=== PATIENT | female | born 1955 | race Caucasian/White ===

== ENCOUNTER 2021-05-22 13:20 | Inpatient (IN) | payer MEDICARE, OTHER ==
[~2021-05-22] VITALS: Ht 154.9 cm; Wt 91.0 kg
[2021-05-22 12:19] VITALS: BP 162/85
[2021-05-22 13:18] VITALS: BP 145/85
[2021-05-22 13:35] VITALS: BP 163/86
[2021-05-22 13:50] VITALS: BP 145/85
[2021-05-22 14:05] VITALS: BP 144/86
[2021-05-22] MEDS ORDERED: NITROGLYCERIN 0.4 MG SL TAB SL PRN (16:00)
[2021-05-22] MEDS ORDERED: DOCUSATE SOD 100 MG CAP PO PRN (16:00)
[2021-05-22] MEDS ORDERED: ACETAMINOPHEN 325 MG TAB PO PRN (16:00)
[2021-05-22] MEDS ORDERED: REMDESIVIR PER PHARMACY 0 ML IV SCH (16:00)
[2021-05-22] MEDS ORDERED: ACETAMINOPHEN 500 MG TAB PO PRN (16:00)
[2021-05-22] MEDS ORDERED: ONDANSETRON HCL 4 MG/2 ML VIAL IV PRN (16:00)
[2021-05-22] MEDS ORDERED: LORazepam 0.5 MG TAB PO PRN (16:00)
[2021-05-22] MEDS ORDERED: HYDROcodone-ACET 5/325MG TAB PO PRN (16:00)
[2021-05-22] MEDS ORDERED: HYDROmorphone HCL 2 MG/ML VL IV PRN (16:00)
[2021-05-22] MEDS ORDERED: MORPHINE SULFATE INJECTION 2 MG/ML SYRG IV PRN (16:00)
[2021-05-22 16:34] LABS: Basophils # (auto) 0 10 ^3/uL (0-0.2); Basophils % (auto) 0.2 % (0.0-2.0); Eosinophils # (auto) 0 10 ^3/uL (0-0.8); Hematocrit 40.9 % (36.0-46.0); Hemoglobin 13.8 g/dL (12.2-16.2); Lymphocytes # (auto) 0.3 10 ^3/uL (0.4-5.4); Lymphocytes % (auto) 8.7 % (10.0-50.0); Mean Corpuscular Hgb Conc. 33.6 g/dL (32.0-36.0); Monocytes # (auto) 0.2 10 ^3/uL (0-1.3); Neutrophils # (auto) 3.2 10 ^3/uL (1.6-8.6); Neutrophils % (auto) 86.1 % (37.0-80.0); Nucleated Red Blood Cells % 0.1 %; Red Blood Cells 4.17 10^6/uL (4.0-5.20); Red Cell Distribution Width 13.1 % (11.8-14.3); White Blood Cell 3.7 10^3/uL (4.4-10.8)
[2021-05-22 16:50] LABS: Potassium 4.4 mmol/L (3.5-5.1)
[2021-05-22 16:54] LABS: BUN/Creatinine Ratio 24.5; Bilirubin, Total 0.3 mg/dL (0.2-1.0)
[2021-05-22 16:57] LABS: Magnesium 1.9 mg/dL (1.6-2.6)
[2021-05-22 17:05] LABS: CRP High Sensitivity 7.14 mg/dL (< 0.3)
[2021-05-22 17:12] LABS: Thyroid Stimulating Hormone 0.23 uIU/mL (0.358-3.74)
[2021-05-22 17:22] LABS: INR 1.01 (0.9-1.15); Partial Thromboplastin Time 28.9 sec (23.6-33.0)
[2021-05-22] MEDS ORDERED: REMDESIVIR 200 MG in NS 210ml LOADING DOSE ADULT IV ONE (19:00)
[2021-05-22] MEDS: BUDESONIDE (INHALATION) 180 MCG IH IN SCH (22:00)
[2021-05-22] MEDS: SODIUM CHLOR 0.9% PF (SALINE LOCK) 10ML VIAL/SYR IV SCH (23:13)
[2021-05-23] MEDS: ENOXAPARIN SOD 40 MG/0.4 ML SYRINGE SC SCH ×3 (00:33→22:04)
[2021-05-23 00:53] VITALS: BP 149/77
[2021-05-23 05:00] VITALS: BP 114/60
[2021-05-23] MEDS: SODIUM CHLOR 0.9% PF (SALINE LOCK) 10ML VIAL/SYR IV SCH ×3 (05:43→22:03)
[2021-05-23 06:24] LABS: Basophils # (auto) 0 10 ^3/uL (0-0.2); Basophils % (auto) 0.2 % (0.0-2.0); Eosinophils # (auto) 0 10 ^3/uL (0-0.8); Hematocrit 41.5 % (36.0-46.0); Hemoglobin 14.3 g/dL (12.2-16.2); Lymphocytes # (auto) 0.9 10 ^3/uL (0.4-5.4); Mean Corpuscular Hemoglobin 33.4 pg (28.0-32.0); Mean Corpuscular Hgb Conc. 34.5 g/dL (32.0-36.0); Mean Corpuscular Volume 96.7 fL (80.0-100.0); Monocytes # (auto) 0.3 10 ^3/uL (0-1.3); Monocytes % (auto) 6.1 % (0.0-12.0); Neutrophils # (auto) 4.3 10 ^3/uL (1.6-8.6); Neutrophils % (auto) 77.7 % (37.0-80.0); Nucleated Red Blood Cells % 0.2 %; Red Cell Distribution Width 13.3 % (11.8-14.3); White Blood Cell 5.6 10^3/uL (4.4-10.8)
[2021-05-23 06:52] LABS: Potassium 4.3 mmol/L (3.5-5.1)
[2021-05-23 07:03] LABS: BUN/Creatinine Ratio 30.3; Bilirubin, Total 0.4 mg/dL (0.2-1.0); Calcium 8.5 mg/dL (8.5-10.1); Total Protein 6.5 g/dL (6.4-8.2)
[2021-05-23 09:00] VITALS: BP 114/60
[2021-05-23] MEDS: BUDESONIDE (INHALATION) 180 MCG IH IN SCH ×2 (10:00→21:26)
[2021-05-23] MEDS: AZITHROMYCIN 500MG/ 250ML 250 ML IV SCH (10:14)
[2021-05-23] MEDS: DexAMETHasone SOD PHOS 10MG/1ML VIAL INJ IV SCH (10:14)
[2021-05-23] MEDS: ASCORBIC ACID 1,000 MG TAB PO SCH (10:14)
[2021-05-23] MEDS: ZINC SULFATE 220mg CAP or TAB PO SCH (10:14)
[2021-05-23] MEDS: CHOLECALCIFEROL (VITD3) 2,000 UNIT CAP/TAB PO SCH (10:15)
[2021-05-23 13:00] VITALS: BP 119/59
[2021-05-23] MEDS: REMDESIVIR 100mg 100 MG in SODIUM CHL 0.9% 230 ML IV SCH (14:30)
[2021-05-23] MEDS ORDERED: OSELTAMIVIR 75 MG CAP PO ONE (14:45)
[2021-05-23] MEDS ORDERED: cefTRIAXone 1GM/50ML D5W 50 ML IV ONE (14:45)
[2021-05-23 16:45] VITALS: BP 115/60
[2021-05-23 21:34] VITALS: BP 130/75
[2021-05-23] MEDS: OSELTAMIVIR 75 MG CAP PO SCH (22:04)
[2021-05-24 05:00] VITALS: BP 140/78
[2021-05-24] MEDS: SODIUM CHLOR 0.9% PF (SALINE LOCK) 10ML VIAL/SYR IV SCH ×3 (05:34→21:49)
[2021-05-24] MEDS: BUDESONIDE (INHALATION) 180 MCG IH IN SCH ×2 (06:31→22:38)
[2021-05-24] MEDS: ALBUTEROL SULF HFA 90MCG INH 200DOSE IN PRN (06:31)
[2021-05-24 09:00] VITALS: BP 115/53
[2021-05-24] MEDS: cefTRIAXone 1GM/50ML D5W 50 ML IV SCH (09:08)
[2021-05-24] MEDS: DexAMETHasone SOD PHOS 10MG/1ML VIAL INJ IV SCH (09:08)
[2021-05-24] MEDS: OSELTAMIVIR 75 MG CAP PO SCH ×2 (09:08→21:48)
[2021-05-24] MEDS: ZINC SULFATE 220mg CAP or TAB PO SCH (09:08)
[2021-05-24] MEDS: CHOLECALCIFEROL (VITD3) 2,000 UNIT CAP/TAB PO SCH (09:09)
[2021-05-24] MEDS: ASCORBIC ACID 1,000 MG TAB PO SCH (09:09)
[2021-05-24] MEDS: ENOXAPARIN SOD 40 MG/0.4 ML SYRINGE SC SCH ×2 (09:09→21:49)
[2021-05-24] MEDS ORDERED: FUROSEMIDE 20 MG/2 ML VIAL IV ONE (09:30)
[2021-05-24] MEDS: AZITHROMYCIN 500MG/ 250ML 250 ML IV SCH (10:18)
[2021-05-24 11:56] LABS: Basophils # (auto) 0 10 ^3/uL (0-0.2); Basophils % (auto) 0.3 % (0.0-2.0); Eosinophils # (auto) 0 10 ^3/uL (0-0.8); Eosinophils % (auto) 0.1 % (0.0-7.0); Hematocrit 42.3 % (36.0-46.0); Hemoglobin 14.7 g/dL (12.2-16.2); Lymphocytes # (auto) 0.4 10 ^3/uL (0.4-5.4); Mean Corpuscular Hemoglobin 33.7 pg (28.0-32.0); Mean Corpuscular Hgb Conc. 34.7 g/dL (32.0-36.0); Monocytes # (auto) 0.4 10 ^3/uL (0-1.3); Monocytes % (auto) 5.6 % (0.0-12.0); Neutrophils # (auto) 6.7 10 ^3/uL (1.6-8.6); Red Blood Cells 4.35 10^6/uL (4.0-5.20); Red Cell Distribution Width 12.9 % (11.8-14.3); White Blood Cell 7.5 10^3/uL (4.4-10.8)
[2021-05-24 13:00] VITALS: BP 116/68
[2021-05-24] MEDS: REMDESIVIR 100mg 100 MG in SODIUM CHL 0.9% 230 ML IV SCH (15:29)
[2021-05-24 16:40] VITALS: BP 115/62
[2021-05-24 21:50] VITALS: BP 130/73
[2021-05-25] MEDS: ALBUTEROL SULF HFA 90MCG INH 200DOSE IN PRN ×2 (00:14→08:58)
[2021-05-25 05:00] VITALS: BP 133/74
[2021-05-25] MEDS: SODIUM CHLOR 0.9% PF (SALINE LOCK) 10ML VIAL/SYR IV SCH ×3 (05:49→22:00)
[2021-05-25 05:52] LABS: Albumin 2.6 g/dL (3.4-5.0); Calcium 8.8 mg/dL (8.5-10.1); Potassium 4.4 mmol/L (3.5-5.1)
[2021-05-25 05:55] LABS: BUN/Creatinine Ratio 45.8; Bilirubin, Total 0.3 mg/dL (0.2-1.0); Total Protein 6.5 g/dL (6.4-8.2)
[2021-05-25] MEDS: DexAMETHasone SOD PHOS 10MG/1ML VIAL INJ IV SCH ×2 (08:31→22:00)
[2021-05-25] MEDS: cefTRIAXone 1GM/50ML D5W 50 ML IV SCH (08:31)
[2021-05-25] MEDS: OSELTAMIVIR 75 MG CAP PO SCH ×2 (08:32→22:00)
[2021-05-25] MEDS: ZINC SULFATE 220mg CAP or TAB PO SCH (08:32)
[2021-05-25] MEDS: CHOLECALCIFEROL (VITD3) 2,000 UNIT CAP/TAB PO SCH (08:33)
[2021-05-25] MEDS: ENOXAPARIN SOD 40 MG/0.4 ML SYRINGE SC SCH ×2 (08:33→22:00)
[2021-05-25] MEDS: ASCORBIC ACID 1,000 MG TAB PO SCH (08:33)
[2021-05-25] MEDS: BUDESONIDE (INHALATION) 180 MCG IH IN SCH ×2 (08:58→21:35)
[2021-05-25 09:00] VITALS: BP_SYST 122; BP_SYST 144; BP_DIAS 68; BP_DIAS 77
[2021-05-25] MEDS: AZITHROMYCIN 500MG/ 250ML 250 ML IV SCH (10:41)
[2021-05-25 12:30] VITALS: BP 144/77
[2021-05-25] MEDS: REMDESIVIR 100mg 100 MG in SODIUM CHL 0.9% 230 ML IV SCH (13:58)
[2021-05-25 17:00] VITALS: BP 136/75
[2021-05-25 22:00] VITALS: BP 128/71
[2021-05-26 05:00] VITALS: BP 140/73
[2021-05-26 05:55] LABS: Basophils # (auto) 0 10 ^3/uL (0-0.2); Basophils % (auto) 0.1 % (0.0-2.0); Eosinophils # (auto) 0 10 ^3/uL (0-0.8); Hematocrit 41.9 % (36.0-46.0); Hemoglobin 14.2 g/dL (12.2-16.2); Lymphocytes # (auto) 0.4 10 ^3/uL (0.4-5.4); Lymphocytes % (auto) 11.9 % (10.0-50.0); Mean Corpuscular Hemoglobin 32.6 pg (28.0-32.0); Mean Corpuscular Hgb Conc. 33.8 g/dL (32.0-36.0); Mean Corpuscular Volume 96.5 fL (80.0-100.0); Monocytes # (auto) 0.2 10 ^3/uL (0-1.3); Monocytes % (auto) 7.5 % (0.0-12.0); Neutrophils # (auto) 2.4 10 ^3/uL (1.6-8.6); Neutrophils % (auto) 80.5 % (37.0-80.0); Nucleated Red Blood Cells % 0.3 %; Red Blood Cells 4.34 10^6/uL (4.0-5.20); Red Cell Distribution Width 12.8 % (11.8-14.3)
[2021-05-26 06:15] LABS: Potassium 4.7 mmol/L (3.5-5.1)
[2021-05-26 06:28] LABS: Albumin 2.7 g/dL (3.4-5.0); BUN/Creatinine Ratio 38.3; Bilirubin, Total 0.4 mg/dL (0.2-1.0); CRP High Sensitivity 4.27 mg/dL (< 0.3); Calcium 8.7 mg/dL (8.5-10.1)
[2021-05-26] MEDS: BUDESONIDE (INHALATION) 180 MCG IH IN SCH ×2 (06:48→22:50)
[2021-05-26] MEDS: ALBUTEROL SULF HFA 90MCG INH 200DOSE IN PRN ×2 (06:48→23:01)
[2021-05-26] MEDS: cefTRIAXone 1GM/50ML D5W 50 ML IV SCH (08:05)
[2021-05-26] MEDS: DexAMETHasone SOD PHOS 10MG/1ML VIAL INJ IV SCH ×2 (08:07→22:16)
[2021-05-26] MEDS: ZINC SULFATE 220mg CAP or TAB PO SCH (08:08)
[2021-05-26] MEDS: ASCORBIC ACID 1,000 MG TAB PO SCH (08:08)
[2021-05-26] MEDS: CHOLECALCIFEROL (VITD3) 2,000 UNIT CAP/TAB PO SCH (08:08)
[2021-05-26] MEDS: OSELTAMIVIR 75 MG CAP PO SCH ×2 (08:08→22:17)
[2021-05-26 09:00] VITALS: BP 103/63
[2021-05-26] MEDS: AZITHROMYCIN 500MG/ 250ML 250 ML IV SCH (10:00)
[2021-05-26] MEDS: ENOXAPARIN SOD 100 MG/1 ML SYRINGE SC SCH ×2 (11:58→22:17)
[2021-05-26] MEDS: SODIUM CHLOR 0.9% PF (SALINE LOCK) 10ML VIAL/SYR IV SCH ×3 (11:58→22:16)
[2021-05-26 13:00] VITALS: BP 147/79
[2021-05-26] MEDS: REMDESIVIR 100mg 100 MG in SODIUM CHL 0.9% 230 ML IV SCH (15:51)
[2021-05-26] MEDS ORDERED: FUROSEMIDE 20 MG/2 ML VIAL IV ONE (16:15)
[2021-05-26 17:00] VITALS: BP 141/70
[2021-05-26 22:00] VITALS: BP 134/78
[2021-05-27 05:00] VITALS: BP 152/85
[2021-05-27] MEDS: BUDESONIDE (INHALATION) 180 MCG IH IN SCH ×2 (05:43→22:18)
[2021-05-27] MEDS: ALBUTEROL SULF HFA 90MCG INH 200DOSE IN PRN ×2 (05:43→23:55)
[2021-05-27 06:24] LABS: Albumin 2.8 g/dL (3.4-5.0); Calcium 8.9 mg/dL (8.5-10.1); Potassium 4.9 mmol/L (3.5-5.1)
[2021-05-27 06:34] LABS: BUN/Creatinine Ratio 33.8; Bilirubin, Total 0.4 mg/dL (0.2-1.0); CRP High Sensitivity 2.21 mg/dL (< 0.3); Total Protein 6.4 g/dL (6.4-8.2)
[2021-05-27 08:00] VITALS: BP 141/70
[2021-05-27 08:50] VITALS: BP 143/86
[2021-05-27] MEDS: cefTRIAXone 1GM/50ML D5W 50 ML IV SCH (09:11)
[2021-05-27] MEDS: DexAMETHasone SOD PHOS 10MG/1ML VIAL INJ IV SCH (09:20)
[2021-05-27] MEDS: ZINC SULFATE 220mg CAP or TAB PO SCH (09:20)
[2021-05-27] MEDS: CHOLECALCIFEROL (VITD3) 2,000 UNIT CAP/TAB PO SCH (09:21)
[2021-05-27] MEDS: ENOXAPARIN SOD 100 MG/1 ML SYRINGE SC SCH ×2 (09:21→21:19)
[2021-05-27] MEDS: OSELTAMIVIR 75 MG CAP PO SCH (09:21)
[2021-05-27] MEDS: ASCORBIC ACID 1,000 MG TAB PO SCH (09:21)
[2021-05-27] MEDS ORDERED: FUROSEMIDE 20 MG/2 ML VIAL IV SCH (10:00)
[2021-05-27] MEDS: AZITHROMYCIN 500MG/ 250ML 250 ML IV SCH (10:18)
[2021-05-27] MEDS: SODIUM CHLOR 0.9% PF (SALINE LOCK) 10ML VIAL/SYR IV SCH ×3 (10:18→21:19)
[2021-05-27 12:34] VITALS: BP 122/74
[2021-05-27 17:00] VITALS: BP 135/71
[2021-05-27 22:00] VITALS: BP 153/95
[2021-05-28 05:00] VITALS: BP 135/73
[2021-05-28] MEDS: SODIUM CHLOR 0.9% PF (SALINE LOCK) 10ML VIAL/SYR IV SCH ×3 (05:47→21:33)
[2021-05-28 06:34] LABS: Hemoglobin 14.8 g/dL (12.2-16.2); Mean Corpuscular Hgb Conc. 34.4 g/dL (32.0-36.0); Mean Corpuscular Volume 95.7 fL (80.0-100.0); Red Blood Cells 4.49 10^6/uL (4.0-5.20); Red Cell Distribution Width 12.7 % (11.8-14.3); White Blood Cell 3.7 10^3/uL (4.4-10.8)
[2021-05-28] MEDS: ALBUTEROL SULF HFA 90MCG INH 200DOSE IN PRN ×2 (06:43→20:15)
[2021-05-28] MEDS: BUDESONIDE (INHALATION) 180 MCG IH IN SCH ×2 (06:43→18:59)
[2021-05-28 08:00] VITALS: BP 143/86
[2021-05-28 08:14] LABS: Band Neutrophils % (manual) 0; Basophils % (manual) 0 (0.0-2.0); Blast Cells 0; Eosinophils % (manual) 0 (0-7); Metamyelocytes % 0; Myelocytes % 0; Promyelocytes % 0; Reactive Lymphocytes 0
[2021-05-28 09:00] VITALS: BP 125/74
[2021-05-28] MEDS: CHOLECALCIFEROL (VITD3) 2,000 UNIT CAP/TAB PO SCH (09:15)
[2021-05-28] MEDS: ASCORBIC ACID 1,000 MG TAB PO SCH (09:15)
[2021-05-28] MEDS: ZINC SULFATE 220mg CAP or TAB PO SCH (09:15)
[2021-05-28] MEDS: DexAMETHasone SOD PHOS 10MG/1ML VIAL INJ IV SCH (09:15)
[2021-05-28] MEDS: ENOXAPARIN SOD 100 MG/1 ML SYRINGE SC SCH ×2 (09:15→21:34)
[2021-05-28 12:16] LABS: Lymphocytes % (manual) 14 (10.0-50.0)
[2021-05-28 12:17] LABS: Monocytes % (manual) 19 (0-12)
[2021-05-28 13:10] VITALS: BP 112/71
[2021-05-28 20:00] VITALS: BP 122/67
[2021-05-28 21:47] VITALS: BP 122/67
[2021-05-29 05:00] VITALS: BP 135/71
[2021-05-29] MEDS: SODIUM CHLOR 0.9% PF (SALINE LOCK) 10ML VIAL/SYR IV SCH ×3 (05:45→21:21)
[2021-05-29 09:00] VITALS: BP 103/68
[2021-05-29] MEDS: DexAMETHasone SOD PHOS 10MG/1ML VIAL INJ IV SCH (09:15)
[2021-05-29] MEDS: ZINC SULFATE 220mg CAP or TAB PO SCH (09:15)
[2021-05-29] MEDS: ENOXAPARIN SOD 100 MG/1 ML SYRINGE SC SCH ×2 (09:15→21:21)
[2021-05-29] MEDS: ASCORBIC ACID 1,000 MG TAB PO SCH (09:15)
[2021-05-29] MEDS: CHOLECALCIFEROL (VITD3) 2,000 UNIT CAP/TAB PO SCH (09:15)
[2021-05-29] MEDS: ALBUTEROL SULF HFA 90MCG INH 200DOSE IN PRN ×2 (09:20→21:46)
[2021-05-29] MEDS: BUDESONIDE (INHALATION) 180 MCG IH IN SCH ×2 (09:20→21:46)
[2021-05-29] MEDS ORDERED: FUROSEMIDE 20 MG/2 ML VIAL IV ONE (10:45)
[2021-05-29 12:41] VITALS: BP 139/79
[2021-05-29 16:58] VITALS: BP 134/80
[2021-05-29 21:07] VITALS: BP 121/63
[2021-05-30] VITALS (7 sets, daily range): BP systolic 105–131; BP diastolic 55–78
[2021-05-30] MEDS: SODIUM CHLOR 0.9% PF (SALINE LOCK) 10ML VIAL/SYR IV SCH ×3 (06:01→22:26)
[2021-05-30] MEDS: ENOXAPARIN SOD 100 MG/1 ML SYRINGE SC SCH ×2 (09:57→22:26)
[2021-05-30] MEDS: FUROSEMIDE 20 MG/2 ML VIAL IV SCH (09:57)
[2021-05-30] MEDS: DexAMETHasone SOD PHOS 10MG/1ML VIAL INJ IV SCH (09:57)
[2021-05-30] MEDS: ZINC SULFATE 220mg CAP or TAB PO SCH (09:57)
[2021-05-30] MEDS: CHOLECALCIFEROL (VITD3) 2,000 UNIT CAP/TAB PO SCH (09:57)
[2021-05-30] MEDS: ASCORBIC ACID 1,000 MG TAB PO SCH (09:57)
[2021-05-30] MEDS: BUDESONIDE (INHALATION) 180 MCG IH IN SCH ×2 (10:00→22:28)
[2021-05-30] MEDS: FLUCONAZOLE 100 MG TAB PO SCH (18:00)
[2021-05-30] MEDS: ALBUTEROL SULF HFA 90MCG INH 200DOSE IN PRN (23:24)
[2021-05-31 04:48] VITALS: BP 135/60
[2021-05-31] MEDS: SODIUM CHLOR 0.9% PF (SALINE LOCK) 10ML VIAL/SYR IV SCH ×3 (06:20→21:39)
[2021-05-31 08:12] VITALS: BP 129/65
[2021-05-31] MEDS: CHOLECALCIFEROL (VITD3) 2,000 UNIT CAP/TAB PO SCH (09:06)
[2021-05-31] MEDS: DexAMETHasone SOD PHOS 4 MG/1ML SDV INJ IV SCH (09:06)
[2021-05-31] MEDS: FLUCONAZOLE 100 MG TAB PO SCH (09:06)
[2021-05-31] MEDS: ZINC SULFATE 220mg CAP or TAB PO SCH (09:06)
[2021-05-31] MEDS: ASCORBIC ACID 1,000 MG TAB PO SCH (09:06)
[2021-05-31] MEDS: ENOXAPARIN SOD 100 MG/1 ML SYRINGE SC SCH ×2 (09:07→21:40)
[2021-05-31] MEDS: BUDESONIDE (INHALATION) 180 MCG IH IN SCH ×2 (10:17→18:10)
[2021-05-31] MEDS: ALBUTEROL SULF HFA 90MCG INH 200DOSE IN PRN ×2 (10:17→18:10)
[2021-05-31 13:00] VITALS: BP 123/76
[2021-05-31] MEDS: FUROSEMIDE 20 MG/2 ML VIAL IV SCH (13:58)
[2021-05-31 16:46] VITALS: BP 141/93
[2021-05-31 22:00] VITALS: BP 137/76
[2021-06-01 05:00] VITALS: BP 147/80
[2021-06-01] MEDS: ALBUTEROL SULF HFA 90MCG INH 200DOSE IN PRN (05:50)
[2021-06-01] MEDS: BUDESONIDE (INHALATION) 180 MCG IH IN SCH (05:50)
[2021-06-01] MEDS: SODIUM CHLOR 0.9% PF (SALINE LOCK) 10ML VIAL/SYR IV SCH (06:00)
[2021-06-01] MEDS: DexAMETHasone SOD PHOS 4 MG/1ML SDV INJ IV SCH (08:31)
[2021-06-01] MEDS: FUROSEMIDE 20 MG/2 ML VIAL IV SCH (08:32)
[2021-06-01] MEDS: CHOLECALCIFEROL (VITD3) 2,000 UNIT CAP/TAB PO SCH (08:32)
[2021-06-01] MEDS: ZINC SULFATE 220mg CAP or TAB PO SCH (08:32)
[2021-06-01] MEDS: FLUCONAZOLE 100 MG TAB PO SCH (08:32)
[2021-06-01] MEDS: ASCORBIC ACID 1,000 MG TAB PO SCH (08:32)
[2021-06-01] MEDS: ENOXAPARIN SOD 100 MG/1 ML SYRINGE SC SCH (08:32)
[2021-06-01 09:00] VITALS: BP 115/68
[2021-06-01 13:00] VITALS: BP 128/80
== END 2021-06-01 16:39 | disposition home health service (06) | DRG 177 ==
LOC: ER 13:20 → TELE 15:58 → TELE-EAST 22:16
PROVIDERS: ADMIT Internal Medicine; ATTEND Internal Medicine
PROC: XW033E5 Introduction of Remdesivir Anti-infective into Peripheral Vein, Percutaneous Approach, New Technology Group 5 (ICD-10-PCS; principal; 2021-05-22)
DX: U07.1 COVID-19 (principal); J96.01 Acute respiratory failure with hypoxia; J12.82 Pneumonia due to coronavirus disease 2019; J98.11 Atelectasis; D68.59 Other primary thrombophilia; D72.810 Lymphocytopenia; E66.9 Obesity, unspecified; J10.1 Influenza due to other identified influenza virus with other respiratory manifestations; R73.03 Prediabetes; Z68.37 Body mass index [BMI] 37.0-37.9, adult; Z71.3 Dietary counseling and surveillance
CPT/HCPCS: 36415; 71045; 80053; 82306; 82728; 83036; 83615; 83735; 83880; 84443; 85007; 85025; 85027; 85379; 85610; 85730; 86141; 87086; 87426; 87804; 93005; 94640; G0378; J0696; J1100; J2405

== ENCOUNTER → 2021-05-22 | Outpatient (CLI) | payer MEDICARE, OTHER ==
[~2021-05-22] VITALS: Ht 154.9 cm; Wt 98.0 kg
[~2021-05-22] MED LIST: [UNRECOGNIZED DRUG - MIXTURE] IV ONE
[2021-05-22 12:19] VITALS: BP 162/85
[2021-05-22 13:35] VITALS: BP 145/85
[2021-05-22 13:50] VITALS: BP 163/86
[2021-05-22 14:20] VITALS: BP 145/85
[2021-05-22 14:50] VITALS: BP 144/86
[2021-05-22 15:15] VITALS: BP 144/86
== END | disposition home or self-care (01) ==
LOC: ER 12:27
PROVIDERS: ATTEND Internal Medicine
DX: U07.1 COVID-19 (principal)